=== PATIENT | female | born 1955 | race Caucasian/White ===

== ENCOUNTER → 2018-02-03 10:19 | Outpatient (CLI) | payer OTHER, SELFPAY ==
--- NOTE | 2018-02-03 | DI.US.S_ITS ---
PROCEDURE: US ABDOMEN LIMITED INDICATIONS: BULGE IN GROIN AREA TECHNIQUE: Real-time focused scanning was performed of the inguinal region, with image documentation. COMPARISON: None. FINDINGS: There is a hernia seen at the area of clinical concern. The hernia sac measures 2.1 x 0.8 x 0.7 cm. The opening within the abdominal wall measures 7 mm. IMPRESSION: Left groin hernia seen at the area of clinical concern. The contents of this hernia are unclear and may contain fat or bowel. Please consider a dedicated CT study with IV and oral contrast for further evaluation. Dictated by: Manny Melara M.D. on 02/03/2018 at 11:20 Approved by: Manny Melara M.D. on 02/03/2018 at 11:22
== END ==
PROVIDERS: PCP Internal Medicine; Visit Provider Internal Medicine
DX: K46.9 Unspecified abdominal hernia without obstruction or gangrene (principal); R19.09 Other intra-abdominal and pelvic swelling, mass and lump
CPT/HCPCS: 76705

== ENCOUNTER 2018-06-27 15:08 | Emergency (ER) | payer OTHER, SELFPAY ==
[2018-06-27 16:09] VITALS: BP 109/82; PULSE 72; RESP 14; O2SAT 100; BMI 25.8
--- NOTE | 2018-06-27 16:41 | ED_ITS ---
HPI - Skin/Abscess/Foreign Bdy <ANDREW Burns - Last Filed: 06/27/18 22:17> General Chief complaint: Skin/Abscess/Foreign Body Stated complaint: Red rash of abd Time Seen by Provider: 06/27/18 16:15 Source: patient Mode of arrival: ambulatory Limitations: no limitations History of Present Illness HPI narrative: 62-year-old female with history of eczema is a non smoker here for complaint of a rash to her bilateral lower abdomen into the bilateral hip area over the past couple of days. She states she has been using topical hydrocortisone and states that has not helped. She believes that this is an eczema outbreak starting. She requests to have a cortisone shot given to the area. She states that it rash is itchy. She denies any changes in her hygiene products. She denies any medication changes or diet changes. She states the cortisone shots this helped her in the past for this. She states this is typical rash for her when she has eczema outbreaks. Positive p.o. intake. No fevers or chills. No other concerns or complaints at this timeframe. Related Data Previous Rx's Medication Instructions Recorded prednisone 40 mg PO BID #8 tab 06/27/18 Allergies Allergy/AdvReac Type Severity Reaction Status Date / Time Penicillins AdvReac Hives Verified 06/27/18 16:09 Review of Systems <ANDREW Burns - Last Filed: 06/27/18 22:17> Constitutional Denies chills, Denies fever(s), Denies lethargy and Denies weakness Eyes Denies change in vision, Denies eye discharge, Denies irritation and Denies loss of vision ENT Ears, Nose, Mouth, and Throat: Denies change in voice, Denies neck pain and Denies sore throat Cardiovascular Denies chest pain, Denies irregular heart rhythm, Denies lightheadedness, Denies palpitations, Denies dyspnea, Denies dyspnea on exertion and Denies orthopnea Respiratory Denies cough, Denies dyspnea, Denies dyspnea on exertion and Denies wheezing Gastrointestinal Gastrointestinal: Denies abdominal pain, Denies change in bowel habits, Denies diarrhea, Denies nausea and Denies vomiting Genitourinary Denies hematuria, Denies flank pain, Denies urinary incontinence and Denies urinary urgency Musculoskeletal Denies neck pain Integumentary/Breasts Denies pruritus, Reports erythema, Reports rash and Denies wounds Neurologic Denies confusion, Denies loss of vision and Denies weakness Psychiatric Denies anxiety, Denies confusion, Denies depression, Denies homicidal ideation and Denies suicidal ideation Endocrine Denies palpitations Hematologic/Lymphatic Denies easy bruising Allergic/Immunologic Denies wheezing PFSH <NADREW Burns - Last Filed: 06/27/18 22:17> Medical History Hypothyroidism (Acute) Surgical History History of tonsillectomy (Acute) Family History Grandmother Breast cancer Social History Smoking Status: Never smoker Social History Smoking Status: Never smoker Exam <ANDREW Burns - Last Filed: 06/27/18 22:17> Initial Vital Signs Initial Vital Signs: Vital Signs Pulse Rate 72 06/27/18 16:09 Respiratory Rate 14 06/27/18 16:09 Blood Pressure 109/82 06/27/18 16:09 Pulse Oximetry 100 06/27/18 16:09 Const General: cooperative and well developed Nutritional Appearance: well nourished Orientation: alert, awake, oriented x3 and not confused HENMT Mouth: oral mucosae normal and moist mucous membranes Chest Chest: normal inspection of the chest Resp Effort & Inspection: normal respiratory effort, able to speak in complete sentences, no respiratory distress and no use of accessory muscles Auscultation: clear to auscultation bilaterally, no rales, no rhonchi and no wheezes Skin Other: Non raised erythematous macular papular to abdomen into bilateral hips area. No scaliness no dry skin. No open lesions Neuro General: alert, oriented x3, gait normal and no focal motor deficits Speech: speech normal <Ghassan Weinberg MD - Last Filed: 06/29/18 02:44> Initial Vital Signs Initial Vital Signs: Vital Signs Pulse Rate 72 06/27/18 16:09 Respiratory Rate 14 06/27/18 16:09 Blood Pressure 109/82 03/04/19 16:09 Pulse Oximetry 100 06/27/18 16:09 Course <ANDREW Burns - Last Filed: 06/27/18 22:17> Vital Signs - 8 hr 06/27/18 16:09 Pulse Rate 72 Respiratory Rate 14 Blood Pressure 109/82 Pulse Oximetry 100 <Ghassan Weinberg MD - Last Filed: 06/29/18 02:44> Vital Signs - 8 hr 06/27/18 16:09 Pulse Rate 72 Respiratory Rate 14 Blood Pressure 109/82 Pulse Oximetry 100 MDM - Skin/Abscess/Foreign Bdy <ANDREW Burns - Last Filed: 06/27/18 22:17> MDM Narrative Medical decision making narrative: Macular papular rash to abdomen and hips based on patient's history will treat as starting eczema. Had discussion with patient of her desired a cortisone shot and using oral steroids versus cortisone shot due to area of the rash being into whole of a bilateral abdomen and to the bilateral hip area and cortisone being localized versus systemic and she agreed to planned to use short course of prednisone to see if it helps with her symptoms. She is encouraged to follow up with Dermatology for further evaluation and treatment. For any worsening symptoms return to the emergency room. Discharge Plan Departure Patient Disposition: Home Clinical Impression: Eczema Qualifiers: Eczema type: unspecified Qualified Code(s): L30.9 - Dermatitis, unspecified Discharge Date/Time: 06/27/18 17:04 Interventions: ED Discharge Assessment Last Done: 06/27/18 17:04 Instructions: DI for Atopic Dermatitis - Adult Activity Restrictions/Additional Instructions: You are treated for starting eczema rash to the abdomen and hips with a oral steroid called prednisone use as directed. Prescription for short course of p rednisone is provided use as directed. Follow up with primary care provider and Dermatology. For any worsening symptoms return to the emergency room. May use [id number] cetirizine to help with itch for any worsening symptoms return emergency room. Prescriptions: New prednisone 20 mg tablet 40 mg PO BID Qty: 8 RF: 0 Referrals: Marga Martel MD [Primary Care Provider] -
== END 2018-06-27 17:04 | disposition home or self-care (01) ==
PROVIDERS: Emergency Provider Nurse Practitioner Family; PCP Internal Medicine
DX: L30.9 Dermatitis, unspecified (principal)
CPT/HCPCS: 99282; 99283

== ENCOUNTER 2020-08-30 09:54 | Emergency (ER) | payer OTHER, SELFPAY ==
[2020-08-30] VITALS (25 sets, daily range): BP systolic 111–151; BP diastolic 69–90; PULSE 91–140; RESP 5–21; TEMP 37.1; O2SAT 96–99
--- NOTE | 2020-08-30 10:09 | PC.NURSE ---
new diagnosis of A.Fib. with rapid heart rate starting today and light-headedness
--- NOTE | 2020-08-30 10:11 | DI.RAD.S_ITS ---
PROCEDURE: XR CHEST 1V INDICATIONS: chest pain TECHNIQUE: One view of the chest was acquired. COMPARISON: None. FINDINGS: Surgical changes and devices: None. Lungs and pleura: Lungs are clear. No pleural effusions or pneumothorax. However, the inferior-most left costophrenic angle is not included within the field of view of this study. Mediastinum: Mediastinal contours appear normal. Heart size is normal. Bones and chest wall: No suspicious bony lesions. Overlying soft tissues appear unremarkable. IMPRESSION: Limited portable chest examination, without a significant cardiopulmonary abnormality identified. Dictated by: Manny Melara M.D. on 08/30/2020 at 9:19 Approved by: Manny Melara M.D. on 08/30/2020 at 9:21
[2020-08-30 10:30] LABS: Add Manual Diff / Slide Review NO; Basophils Absolute Auto 0 /uL (0-100); Basophils Percent Auto 0.3 % (0-2); Eosinophils Absolute Auto 100 /uL (0-450); Eosinophils Percent Auto 1.3 % (2-4); Hematocrit 38.9 % (36-46); Hemoglobin 13.2 g/dL (12.0-16.0); Lymphocytes Absolute Auto 2100 /uL (1100-4500); Lymphocytes Percent Auto 33.2 % (25-40); Mean Corpuscular HGB Conc 34.1 % (30-36); Mean Corpuscular Hemoglobin 30.7 PG (26-34); Mean Corpuscular Volume 90.2 fL (80-100); Monocytes Absolute Auto 500 /uL (0-900); Neutrophils Absolute Auto 3500 /uL (1500-7000); Neutrophils Percent Auto 57.2 % (50-75); Platelet Count 221 X10^3/uL (150-400); Red Blood Cell Count 4.31 X10^6/uL (4.0-5.2); Red Cell Distribution Width 12.9 % (11.6-14.8); White Blood Cell Count 6.2 X10^3/uL (4.5-11.0)
[2020-08-30 10:37] LABS: Prothrombin Time 11.1 SECONDS (10.1-12.7)
[2020-08-30 10:40] LABS: PTT Partial Thromboplastin Tim 30 SECONDS (26.4-36.2)
[2020-08-30 10:41] LABS: Alanine Aminotransferase 25 IU/L (<35); Albumin 4.2 g/dL (3.5-5.0); Albumin Globulin Ratio 1.8 (1.0-2.8); Alkaline Phosphatase 87 U/L (38-126); Aspartate Aminotransferase 26 IU/L (14-36); BUN Creatinine Ratio 17.6 (6-22); Bilirubin Total 0.5 mg/dL (0.2-1.3); Blood Urea Nitrogen 12 mg/dL (7-17); Calcium 9.6 mg/dL (8.4-10.2); Carbon Dioxide 26 mmol/L (22-32); Chloride 106 mmol/L (98-107); Creatine Kinase 51 U/L (30-135); Estimated Glomerular Filt Rate > 60.0 mL/min (>60); Globulin 2.4 g/dL (1.7-4.1); Glucose 164 mg/dL (80-110); HEMOLYSIS < 15 (0-50); Sodium 139 mmol/L (137-145); Total Protein 6.6 g/dL (6.3-8.2)
[2020-08-30 10:53] LABS: Troponin I < 0.012 ng/mL (0.01-0.034)
--- NOTE | 2020-08-30 10:53 | ED.DIZZY ---
HPI - Dizziness General Chief Complaint: Dizziness Stated Complaint: a-fib episode today/lightheaded Time Seen by Provider: 08/30/20 10:04 Source: patient Mode of arrival: Ambulatory Limitations: no limitations History of Present Illness HPI Narrative: Patient is a 64-year-old female with history of hypothyroid who presents with lightheadedness which started suddenly this morning. She states she does monitor her heart rate on occasion by her watch but does not always wear her watch noticed that her heart rate was 150. She is was found to be atrial flutter heart rate 140s in the emergency department. She denies any chest pain palpitations shortness of breath nausea vomiting weakness numbness or tingling. Although she does have some tingling from her right elbow to her right wrist thinking it was carpal tunnel. But has no numbness or tingling in her fingertips. His no prior pre of atrial fibrillation. She denies any loss of consciousness or syncope. She states her lightheadedness is not any worse when she moves. She does not feel like the room is spinning. complaint: lightheadedness Related Data Home Medications Medication Instructions Recorded Confirmed Triiodothyronine 45 mcg PO BID 08/30/20 08/30/20 levothyroxine 100 mcg PO QAM 08/30/20 08/30/20 Previous Rx's Medication Instructions Recorded metoprolol succinate 25 mg PO DAILY #30 tab 08/30/20 Allergies Allergy/AdvReac Type Severity Reaction Status Date / Time Penicillins AdvReac Hives Verified 08/30/20 10:50 Review of Systems Review of Systems Narrative: GENERAL: Denies chills, fatigue, malaise, fever, sweats, travel HEENT: Denies sinus pain, ear pain, sore throat, difficulty swallowing, neck pain RESPIRATORY: Denies dyspnea, cough, wheezing, hemoptysis, sputum. CARDIOVASCULAR: Denies chest pain, palpitations, orthopnea, edema GASTROINTESTINAL: Denies nausea, vomiting, abdominal pain, diarrhea, constipation, melena. : Denies dysuria, frequency, incontinence, hematuria, urinary retention, flank pain. MUSCULOSKELETAL: Denies weakness, joint pain, or bony pain SKIN: No rash, no erythema, no pruritus NEUROLOGIC: Lightheaded PSYCHIATRIC: No concerning psychosocial issues. 12 point review of systems is negative except for those stated above and HPI Patient History Medical History (Updated 08/30/20 @ 13:09 by Michelle Garcia DO) Eczema Hypothyroidism Surgical History History of tonsillectomy Family History Grandmother Breast cancer Social History Smoking Status: Never smoker Smoking Status: Never smoker alcohol intake frequency: other Substance Use Type: does not use Exam Initial Vital Signs Initial Vital Signs: Vital Signs Temperature 98.8 F 08/30/20 10:05 Pulse Rate 140 H 08/30/20 10:05 Respiratory Rate 18 08/30/20 10:05 Blood Pressure 131/88 08/30/20 10:05 Pulse Oximetry 97 08/30/20 10:05 GENERAL: Well-appearing, well-nourished and in no acute distress. HEENT: Head atraumatic,EOMI, pupils reactive, face symmetric, moist mucous membranes CARDIOVASCULAR: Irregularly irregular without murmur RESPIRATORY: Breath sounds equal bilaterally, no wheezes rales or rhonchi. ABDOMEN: Soft, nontender. Normoactive bowel sounds all 4 quadrants. No guarding or rebound. EXTREMITIES: Normal range of motion, no clubbing or edema. Neurovascularly intact NEUROLOGICAL: Alert and oriented x4.Normal gait and speech. Cranial nerves II through XII grossly intact. SKIN: Warm, dry, no laceration, no petechiae, no rashes or lesions. Scores CHADS-VASc Congestive heart failure: no Hypertension: no Age 75 years or older: no Diabetes mellitus: no Stroke, TIA, or TE: no Vascular disease: no Age 65 to 74 years: no Sex category (female): Female CHADS-VASc Score: 1 Course Orders Ordered: ED Orders 08/30/20 10:11 XR chest 1V Stat 08/30/20 10:25 Complete Blood Count AUTO DIFF Stat Comprehensive Metabolic Panel Stat Free T4, Direct Thyroxine Stat Partial Thromboplastin Time Stat Prothrombin Time INR Stat TSH w/ Reflex to FT4 Stat Troponin & CK Cardiac Panel Stat 08/30/20 10:29 EKG-12 Lead Stat 08/30/20 10:54 CT head/brain wo con Stat Discontinued Medications Diltiazem HCl (Diltiazem 5 Mg/Ml Sdv) 10 mg IV NOW ONE Stop: 08/30/20 10:55 Last Admin: 08/30/20 11:29 Dose: 10 mg Documented by: RONIT Diltiazem HCl (Diltiazem 5 Mg/Ml Sdv) 10 mg IV NOW ONE Stop: 08/30/20 12:34 Last Admin: 08/30/20 13:11 Dose: Not Given Documented by: RONIT Metoprolol Succinate (Metoprolol Er 25 Mg Tablet) 25 mg PO NOW ONE Stop: 08/30/20 13:11 Last Admin: 08/30/20 13:23 Dose: 25 mg Documented by: TRACEY Vital Signs Vital signs: Vital Signs - 8 hr 08/30/20 10:05 08/30/20 10:55 08/30/20 11:00 Temperature 98.8 F Pulse Rate 140 H 114 H 114 H Respiratory Rate 18 11 L 12 Blood Pressure 131/88 133/83 Pulse Oximetry 97 97 97 08/30/20 11:13 08/30/20 11:28 08/30/20 11:29 Temperature Pulse Rate 114 H 109 H 120 H Respiratory Rate 15 15 Blood Pressure 135/83 132/85 132/85 Pulse Oximetry 97 98 08/30/20 11:30 08/30/20 11:40 08/30/20 11:50 Temperature Pulse Rate 116 H 91 H 97 H Respiratory Rate 20 16 19 Blood Pressure 129/90 111/82 Pulse Oximetry 99 98 97 08/30/20 12:00 08/30/20 12:01 08/30/20 12:10 Temperature Pulse Rate 100 H 106 H 100 H Respiratory Rate 18 16 21 Blood Pressure 151/69 H 122/78 Pulse Oximetry 97 96 96 08/30/20 12:20 08/30/20 12:31 08/30/20 12:32 Temperature Pulse Rate 102 H 112 H 110 H Respiratory Rate 18 14 5 L Blood Pressure 117/71 125/82 Pulse Oximetry 98 08/30/20 12:40 08/30/20 12:50 08/30/20 13:00 Temperature Pulse Rate 111 H 122 H 100 H Respiratory Rate 15 17 14 Blood Pressure 132/90 Pulse Oximetry 99 98 08/30/20 13:10 08/30/20 13:20 08/30/20 13:22 Temperature Pulse Rate 112 H 114 H 111 H Respiratory Rate 17 17 15 Blood Pressure 132/85 Pulse Oximetry 97 99 08/30/20 13:23 08/30/20 13:30 08/30/20 13:40 Temperature Pulse Rate 100 H 111 H 115 H Respiratory Rate 14 17 Blood Pressure 132/85 127/81 Pulse Oximetry 08/30/20 13:58 Temperature Pulse Rate 97 H Respiratory Rate Blood Pressure Pulse Oximetry MDM - Dizziness Lab Data Attestation: I reviewed the patient's lab results. Result diagrams: 08/30/20 10:25 08/30/20 10:25 Labs: Lab Results 08/30/20 08/30/20 08/30/20 Range/Units 10:25 10:25 10:25 WBC 6.2 (4.5-11.0) X10^3/uL RBC 4.31 (4.0-5.2) X10^6/uL Hgb 13.2 (12.0-16.0) g/dL Hct 38.9 (36-46) % MCV 90.2 (80-100) fL MCH 30.7 (26-34) PG MCHC 34.1 (30-36) % RDW 12.9 (11.6-14.8) % Plt Count 221 (150-400) X10^3/uL Neut % (Auto) 57.2 (50-75) % Lymph % (Auto) 33.2 (25-40) % [place] % (Auto) 8.0 (3-14) % Eos % (Auto) 1.3 L (2-4) % Baso % (Auto) 0.3 (0-2) % Neut # (Auto) 3500 (7506-2094) /uL Lymph # (Auto) 2100 (4442-6455) /uL [place] # (Auto) 500 (0-900) /uL Eos # (Auto) 100 (0-450) /uL Baso # (Auto) 0 (0-100) /uL PT 11.1 (10.1-12.7) SECONDS INR 1.0 (0.9-1.3) APTT 30 (26.4-36.2) SECONDS Sodium 139 (137-145) mmol/L Potassium 4.0 (3.4-5.1) mmol/L Chloride 106 (98-107) mmol/L Carbon Dioxide 26 (22-32) mmol/L BUN 12 (7-17) mg/dL Creatinine 0.68 (0.52-1.04) mg/dL Estimated GFR > 60.0 (>60) mL/min BUN/Creatinine Ratio 17.6 (6-22) Glucose 164 H (80-110) mg/dL Calcium 9.6 (8.4-10.2) mg/dL Total Bilirubin 0.5 (0.2-1.3) mg/dL AST 26 (14-36) IU/L ALT 25 (<35) IU/L Alkaline Phosphatase 87 (38-126) U/L Total Creatine Kinase 51 (30-135) U/L CK-MB (CK-2) TNP CK-MB (CK-2) Rel Index TNP Troponin I < 0.012 (0.01-0.034) ng/mL Total Protein 6.6 (6.3-8.2) g/dL Albumin 4.2 (3.5-5.0) g/dL Globulin 2.4 (1.7-4.1) g/dL Albumin/Globulin Ratio 1.8 (1.0-2.8) TSH (0.47-4.68) uIU/mL Free T4 (0.78-2.19) ng/dL 08/30/20 Range/Units 10:25 WBC (4.5-11.0) X10^3/uL RBC (4.0-5.2) X10^6/uL Hgb (12.0-16.0) g/dL Hct (36-46) % MCV (80-100) fL MCH (26-34) PG MCHC (30-36) % RDW (11.6-14.8) % Plt Count (150-400) X10^3/uL Neut % (Auto) (50-75) % Lymph % (Auto) (25-40) % [place] % (Auto) (3-14) % Eos % (Auto) (2-4) % Baso % (Auto) (0-2) % Neut # (Auto) (4335-2693) /uL Lymph # (Auto) (8207-3120) /uL [place] # (Auto) (0-900) /uL Eos # (Auto) (0-450) /uL Baso # (Auto) (0-100) /uL PT (10.1-12.7) SECONDS INR (0.9-1.3) APTT (26.4-36.2) SECONDS Sodium (137-145) mmol/L Potassium (3.4-5.1) mmol/L Chloride (98-107) mmol/L Carbon Dioxide (22-32) mmol/L BUN (7-17) mg/dL Creatinine (0.52-1.04) mg/dL Estimated GFR (>60) mL/min BUN/Creatinine Ratio (6-22) Glucose (80-110) mg/dL Calcium (8.4-10.2) mg/dL Total Bilirubin (0.2-1.3) mg/dL AST (14-36) IU/L ALT (<35) IU/L Alkaline Phosphatase (38-126) U/L Total Creatine Kinase (30-135) U/L CK-MB (CK-2) CK-MB (CK-2) Rel Index Troponin I (0.01-0.034) ng/mL Total Protein (6.3-8.2) g/dL Albumin (3.5-5.0) g/dL Globulin (1.7-4.1) g/dL Albumin/Globulin Ratio (1.0-2.8) TSH < 0.02 L (0.47-4.68) uIU/mL Free T4 1.18 (0.78-2.19) ng/dL Imaging Data Chest x-ray: Radiologist's Impression: PROCEDURE: XR CHEST 1V INDICATIONS: chest pain TECHNIQUE: One view of the chest was acquired. COMPARISON: None. FINDINGS: Surgical changes and devices: None. Lungs and pleura: Lungs are clear. No pleural effusions or pneumothorax. However, the inferior-most left costophrenic angle is not included within the field of view of this study. Mediastinum: Mediastinal contours appear normal. Heart size is normal. Bones and chest wall: No suspicious bony lesions. Overlying soft tissues appear unremarkable. IMPRESSION: Limited portable chest examination, without a significant cardiopulmonary abnormality identified. Dictated by: Manny Melara M.D. on 08/30/2020 at 9:19 Approved by: Manny Melara M.D. on 08/30/2020 at 9:21 CT scan - head: Radiologist's Impression: PROCEDURE: CT HEAD/BRAIN WO CON INDICATIONS: light headed TECHNIQUE: Noncontrast 4.5 mm thick angled axial sections acquired from the foramen magnum to the vertex, with coronal and sagittal reformats. For radiation dose reduction, the following was used: automated exposure control, adjustment of mA and/or kV according to patient size. COMPARISON: None. FINDINGS: Image quality: Excellent. CSF spaces: Basal cisterns are patent. No extra-axial fluid collections. Ventricles are normal in size and shape. Brain: No intracranial hemorrhage, mass, or mass effect. Beverly-white matter interface appears preserved. Skull and face: Calvarium and visualized facial bones are intact, without suspicious lesions. Sinuses: Visualized sinuses and mastoids are clear. IMPRESSION: 1. No acute intracranial abnormality. Dictated by: Guru Carey M.D. on 08/30/2020 at 11:24 ECG Data Attestation: I personally reviewed and interpreted this ECG as follows: Prior ECG tracings: not available for review Interpretation: Atrial flutter rate [address] changes EKG 2. Persistent atrial flutter rate [address] changes MDM Narrative Medical decision making narrative: Patient is not a candidate for cardioversion she is completely asymptomatic when her heart rate is is controlled. I do not feel like her timeline allows for cardioversion. She has a low chads Vasc 2 score however I still recommend at least aspirin 81 mg. TSH is also found to be undetectable. 1pm spoke with patient's PCP Dr. Martel at this time at this time agrees with outpatient follow-up and metoprolol for rate control Discharge Plan Departure Patient Disposition: Home Clinical Impression: Atrial fibrillation, Hypothyroid Instructions: Atrial Fibrillation Activity Restrictions/Additional Instructions: *You have been diagnosed with atrial fibrillation *What to do: At this time you will likely need more testing done with your primary care provider they do not need to stay in the hospital. *Continue to take medications as directed Metoprolol 25 mg once a day to help with rate control Aspirin 81 mg once daily to help prevent stroke and heart attack *Follow up with your primary care provider in 2-3 days *Return to ER if you should have lightheadedness, chest pain, shortness of breath, weakness or any new, worsening or concerning symptoms Prescriptions: New metoprolol succinate 25 mg tablet extended release 24 hr 25 mg PO DAILY Qty: 30 RF: 0 No Action levothyroxine 100 mcg Tablet 100 mcg PO QAM RF: 0 Triiodothyronine 45 mcg PO BID RF: 0 Referrals: Marga Martel MD [Primary Care Provider] -
[2020-08-30] MEDS: dilTIAZem 5 MG/ML SDV 10 MG IV (11:29)
[2020-08-30 12:18] LABS: TSH w/ Reflex to FT4 < 0.02 uIU/mL (0.47-4.68)
[2020-08-30 13:23] LABS: Free T4, Direct Thyroxine 1.18 ng/dL (0.78-2.19)
[2020-08-30] MEDS: METOPROLOL ER 25 MG TABLET PO (13:23)
== END 2020-08-30 13:59 | disposition home or self-care (01) ==
PROVIDERS: Emergency Provider Emergency Medicine; PCP Internal Medicine
DX: I48.91 Unspecified atrial fibrillation (principal); E03.9 Hypothyroidism, unspecified; R07.9 Chest pain, unspecified
CPT/HCPCS: 36415; 70450; 71045; 80053; 82550; 84439; 84443; 84484; 85025; 85610; 85730; 93005; 96374; 99284; 99285

== ENCOUNTER → 2021-01-13 16:29 | Outpatient (CLI) | payer OTHER, SELFPAY ==
--- NOTE | 2021-01-13 | DI.MG.S_ITS ---
BILATERAL DIGITAL SCREENING MAMMOGRAM 3D/2D WITH CAD: 01/13/2021 CLINICAL: Routine screening. Baseline by default. Family history of breast cancer. No prior exams were available for comparison. The tissue of both breasts is heterogeneously dense. This may lower the sensitivity of mammography. Current study was also evaluated with a Computer Aided Detection (CAD) system. There is a focal asymmetry in the right breast central to the nipple in the retroareolar region. No other significant masses, calcifications, or other findings are seen in either breast. IMPRESSION: INCOMPLETE: NEEDS ADDITIONAL IMAGING EVALUATION The focal asymmetry in the right breast is indeterminate. Additional views with possible ultrasound are recommended. This exam was interpreted at Station ID: [id number]. NOTE: For mammograms, a report in lay terms will be sent to the patient. Approximately 15% of breast malignancies will not be visualized mammographically. In the management of a palpable breast mass, a negative mammogram must not discourage biopsy of a clinically suspicious lesion. Electronically Signed By: Jd ruby/edie:01/14/2021 08:31:15 letter sent: Additional Imaging Needed ACR BI-RADS Category 0: Incomplete [id number]
== END ==
PROVIDERS: PCP Internal Medicine; Referring Provider Internal Medicine; Visit Provider Internal Medicine
DX: Z12.31 Encounter for screening mammogram for malignant neoplasm of breast (principal); N64.89 Other specified disorders of breast; Z80.3 Family history of malignant neoplasm of breast
CPT/HCPCS: 77063; 77067

== ENCOUNTER → 2022-04-15 13:21 | Outpatient (CLI) | payer OTHER, SELFPAY | PROVIDERS: PCP Internal Medicine; Referring Provider Hospitalist; Visit Provider Hospitalist | DX: I48.0 Paroxysmal atrial fibrillation (principal) | CPT/HCPCS: 93005 ==

== ENCOUNTER 2025-01-14 20:55 | Emergency (ER) | payer OTHER, SELFPAY ==
[2025-01-14 21:07] VITALS: BP 182/95; PULSE 71; RESP 18; TEMP 36.8; O2SAT 98
--- NOTE | 2025-01-14 21:10 | DI.RAD.S_ITS ---
PROCEDURE: XR KNEE RT 3V INDICATIONS: swelling TECHNIQUE: 3 views of the knee were acquired. COMPARISON: None. FINDINGS: Bones: No fractures or dislocations. No suspicious bony lesions. Mild tricompartmental osteoarthrosis. Chondrocalcinosis. Suprapatellar enthesophytes. Soft tissues: Possible joint effusion, however evaluation is limited due to patient factors related to positioning. No suspicious soft tissue calcifications. IMPRESSION: No acute bony abnormality or significant effusion. Chondrocalcinosis. Suprapatellar enthesophytes and mild tricompartmental osteoarthrosis. If symptoms persist with conservative management, consider cross-sectional imaging such as CT or MRI. Approved by: Carissa Durham M.D.,Ph.D. on 01/14/2025 at 23:56
--- NOTE | 2025-01-14 23:40 | ED.EXTPRO ---
HPI - Extremity Problem General Chief complaint: Extremity Problem,Nontraumatic Stated complaint: R Knee Pain Time Seen by Provider: 01/14/25 23:31 Source: patient Mode of arrival: Wheelchair History of Present Illness HPI Narrative: 69-year-old female had injection of superficial veins recently, on the dance floor earlier today was twisting and felt pop pain sensation to the right knee. No gross swelling. No instability or fall. No direct blow. No prior surgical interventions on that affected knee. No distal foreleg swelling. No hip pain. Related Data Home Medications ?Medication ?Instructions ?Recorded ?Confirmed Triiodothyronine 45 mcg PO BID 08/30/20 09/29/24 levothyroxine 100 mcg tablet 100 mcg PO QAM 08/30/20 09/29/24 Previous Rx's ?Medication ?Instructions ?Recorded metoprolol succinate 25 mg 25 mg PO DAILY #30 tabs 08/30/20 tablet,extended release 24 hr prednisone 20 mg tablet 40 mg (2 x 20 mg) PO DAILY #6 tabs 12/24/22 triamcinolone acetonide 0.5 % 1 applic topical TID #15 grams 12/24/22 topical ointment Allergies Allergy/AdvReac Type Severity Reaction Status Date / Time Penicillins AdvReac Hives Verified 09/29/24 11:27 Patient History Medical History (Updated 01/15/25 @ 00:09 by Dwight Cosby MD) Eczema Hypothyroidism Surgical History History of tonsillectomy Family History Grandmother Breast cancer alcohol intake frequency: other Exam Narrative Exam Narrative: GENERAL: Well-developed patient, in mild distress. HEAD: Atraumatic. Normocephalic. EYES: Pupils equal round and reactive. Extraocular motions intact. No scleral icterus. No injection or drainage. ENT: Nose without bleeding, purulent drainage. Throat without erythema, tonsillar hypertrophy or exudate. Airway patent. NECK: Trachea midline. Non tender CARDIOVASCULAR: Regular rate and rhythm without murmurs, gallops, or rubs. RESPIRATORY: Clear to auscultation. Breath sounds equal bilaterally. No wheezes, rales, or rhonchi. GASTROINTESTINAL: Abdomen soft, non-tender, nondistended. EXTREMITIES: No obvious gross edema effusion to the right knee. No skin changes abrasions lacerations or punctures. No tenderness medial or lateral joint line. No tenderness around the patella or along the patellar tendon or its insertion. Lisandro's with good end point. No discomfort or laxity with valgus stress or varus stress. No posterior popliteal lesions or tenderness or cords or Nichols cyst obvious. BACK: Nontender without deformity or crepitance. No flank tenderness. NEURO: AOx3. Motor functions grossly nonfocal. SKIN: No rash or erythema of visible areas Initial Vital Signs Initial Vital Signs: Vital Signs Temperature 98.3 F 01/14/25 21:07 Pulse Rate 71 01/14/25 21:07 Respiratory Rate 18 01/14/25 21:07 Blood Pressure 182/95 H 01/14/25 21:07 Pulse Oximetry 98 01/14/25 21:07 Oxygen Delivery Method Room Air 01/14/25 21:07 Course Orders Ordered: ED Orders 01/15/25 00:13 Consult to [facility] Stat Discontinued Medications Tramadol HCl (Tramadol 50 Mg Tablet) 50 mg PO NOW ONE Stop: 01/14/25 23:49 Last Admin: 01/14/25 23:57 Dose: 50 mg Documented By: BERE Tramadol HCl (Tramadol 50 Mg Prepack) 1 bottle MISC DIRECTED ONE Stop: 01/14/25 23:49 Last Admin: 01/14/25 23:57 Dose: 1 bottle Documented By: BERE Vital Signs Vital signs: Vital Signs - 8 hr 01/15/25 00:35 Pulse Rate 80 Respiratory Rate 18 Blood Pressure 168/88 H Pulse Oximetry 100 Oxygen Delivery Method Room Air MDM - Extremity (Nontraumatic) Imaging Data Extremity x-ray #1: Radiologist's Impression: [address] [address] XRay Report Signed Patient: Petra Haile MR#: [id number] : 1955 Acct:[id number] Age/Sex: 69 / F Date of Service: 01/14/25 Loc: ED Accession Number: [id number] Procedure: XR knee RT 3V Ordering Provider: Dwight Cosby MD PROCEDURE: XR KNEE RT 3V INDICATIONS: swelling TECHNIQUE: 3 views of the knee were acquired. COMPARISON: None. FINDINGS: Bones: No fractures or dislocations. No suspicious bony lesions. Mild tricompartmental osteoarthrosis. Chondrocalcinosis. Suprapatellar enthesophytes. Soft tissues: Possible joint effusion, however evaluation is limited due to patient factors related to positioning. No suspicious soft tissue calcifications. IMPRESSION: No acute bony abnormality or significant effusion. Chondrocalcinosis. Suprapatellar enthesophytes and mild tricompartmental osteoarthrosis. If symptoms persist with conservative management, consider cross-sectional imaging such as CT or MRI. Approved by: Carissa Durham M.D.,Ph.D. on 01/14/2025 at 23:56 MDM Narrative Medical decision making narrative: 69-year-old female with right knee popping sensation after dancing, persisting pain seems predominantly anteromedial. No joint line tenderness medial or lateral along the knee, no gross effusion. Good endpoint Lisandro's, no laxity varus or valgus stress. Concern for possible intra-articular injury. Screening x-ray negative for obvious fracture. Placed in knee immobilizer, nonweightbearing for now with crutches that were dispensed. Rest, ice, elevation. Recheck advised with PCP or with local orthopedic surgery in the next couple of days to reassess knee exam and see if weight-bearing can be attempted, might need eventual MRI knee if intra-articular injury concern persists. Discharged home with family. Return precautions discussed. Discharge Plan Departure Patient Disposition: Home Clinical Impression: Strain of right knee Activity Restrictions/Additional Instructions: Right knee discomfort with twisting dancing maneuver, pop pain sensation. No gross large knee effusion on examination. Examination not consistent with DVT, no ultrasound ordered for tonight. X-rays did not show any obvious fracture but did show arthritic change per radiologist's report. Concern by clinical history of ligamentous injury, though no gross instability by knee exam presently. We discussed protecting the knee with knee immobilizer and nonweightbearing with use of crutches for initial management. Rest ice elevation. Use of ibuprofen anti-inflammatory medication [id number] should suffice. Consider recheck with your regular doctor and/or orthopedic surgery in follow up, if symptoms are persisting then concern increase his for ligamentous intra-articular injury, sometimes prompting MRI knee imaging, or other evaluation in follow up. Prescriptions: No Action prednisone 20 mg tablet 40 mg PO DAILY Qty: 6 0RF triamcinolone acetonide 0.5 % ointment 1 applic topical TID Qty: 15 0RF levothyroxine 100 mcg Tablet 100 mcg PO QAM Triiodothyronine 45 mcg PO BID Rx Instructions: extended release, compound pharmacy metoprolol succinate 25 mg tablet extended release 24 hr 25 mg PO DAILY Qty: 30 0RF Referrals: Marga Martel MD [Primary Care Provider, Medical] Kurtis Disla MD [Physician, Orthopedic Surgery] Stand Alone Forms: Patient Portal/API
[2025-01-15 00:35] VITALS: BP 168/88; PULSE 80; RESP 18; O2SAT 100
== END 2025-01-15 00:36 | disposition home or self-care (01) ==
PROVIDERS: Emergency Provider Emergency Medicine; PCP Internal Medicine
DX: S83.91XA Sprain of unspecified site of right knee, initial encounter (principal); X50.1XXA Overexertion from prolonged static or awkward postures, initial encounter
CPT/HCPCS: 73562; 99283

== ENCOUNTER 2025-02-22 11:55 | Emergency (ER) | payer OTHER, SELFPAY ==
[2025-02-22 12:00] VITALS: BP 119/83; PULSE 56; RESP 13; TEMP 36.1; O2SAT 99; BMI 23.6
--- NOTE | 2025-02-22 12:03 | EKG_ITS ---
[address] [address] Test Date: 2025-02-22 Pat Name: Petra Haile Department: Room: Gender: Female [employer]: ANDRADE : 1955 Requested By: Order Number: [id number] Reading MD: Malik Leonard MD Measurements Intervals [place] Rate: 51 P: -10 [place]: 166 QRS: -2 QRSD: 80 T: 17 QT: 426 QTc: 392 Interpretive Statements Sinus bradycardia Low voltage QRS Cannot rule out Anterior infarct , age undetermined Electronically Signed On 03-04-2025 9:00:26 PST by Malik Leonard MD
--- NOTE | 2025-02-22 12:06 | DI.RAD.S_ITS ---
PROCEDURE: XR CHEST 1V INDICATIONS: Chest Pain TECHNIQUE: One view of the chest was acquired. COMPARISON: None. FINDINGS: Surgical changes and devices: None. Lungs and pleura: Lungs are clear. No pleural effusions or pneumothorax. Mediastinum: Mediastinal contours appear normal. Heart size is normal. Bones and chest wall: No suspicious bony lesions. Overlying soft tissues appear unremarkable. IMPRESSION: No acute cardiopulmonary abnormality is seen. Dictated by: Hector Quevedo M.D. on 02/22/2025 at 12:31 Approved by: Hector Quevedo M.D. on 02/22/2025 at 12:32
[2025-02-22] MEDS: ASPIRIN 81 MG CHEW TAB 324 MG PO (12:14)
[2025-02-22 12:25] LABS: Add Manual Diff / Slide Review NO; Hematocrit 37.3 % (36-46); Hemoglobin 12.9 g/dL (12.0-16.0); Lymphocytes Absolute Auto 2400 /uL (1100-4500); Mean Corpuscular HGB Conc 34.6 % (30-36); Mean Corpuscular Hemoglobin 32.2 PG (26-34); Mean Corpuscular Volume 93.0 fL (80-100); Platelet Count 202 X10^3/uL (150-400)
[2025-02-22 12:35] LABS: INR 1.0 (0.9-1.3); Prothrombin Time 11.2 SECONDS (9.4-12.5)
[2025-02-22 12:38] LABS: PTT Partial Thromboplastin Tim 27 SECONDS (25.1-36.5)
[2025-02-22 12:39] LABS: Alanine Aminotransferase 21 IU/L (<35); Albumin 4.5 g/dL (3.5-5.0); Albumin Globulin Ratio 1.7 (1.0-2.8); Alkaline Phosphatase 60 U/L (38-126); Blood Urea Nitrogen 21 mg/dL (7-17); Calcium 9.0 mg/dL (8.4-10.2); Carbon Dioxide 25 mmol/L (22-32); Chloride 101 mmol/L (98-107); Creatine Kinase 68 U/L (30-135); Estimated Glomerular Filt Rate > 60 mL/min (>60); Globulin 2.7 g/dL (1.7-4.1); Glucose 102 mg/dL (70-99); HEMOLYSIS < 15 (0-50); Lipase 93 U/L (23-300); Magnesium 2.2 mg/dL (1.6-2.3); Potassium 4.3 mmol/L (3.4-5.1); Sodium 134 mmol/L (137-145); Total Protein 7.2 g/dL (6.3-8.2)
[2025-02-22 12:51] LABS: NT-proBNP (BNP-Adult 18+) 115 pg/mL (<125); Troponin I < 0.012 ng/mL (0.01-0.034)
[2025-02-22 13:05] VITALS: PULSE 54; RESP 18; O2SAT 97
[2025-02-22 13:30] VITALS: PULSE 55; RESP 16; O2SAT 100
--- NOTE | 2025-02-22 13:38 | ED.CHESTPAIN ---
HPI - Chest Pain General Chief Complaint: Chest Pain Stated Complaint: per patient had a heart attack now Time Seen by Provider: 02/22/25 13:08 Source: patient Mode of arrival: Ambulatory Limitations: no limitations History of Present Illness HPI narrative: Patient here with . Had sudden onset substernal sharp chest pain did not radiate at 12:00 p.m. today. Had nausea and shortness of breath. Symptoms lasted about 5 minutes. Patient has no symptoms now. Patient has history of atrial fibrillation. Patient has never had a stress test or echocardiogram. No primary family history of cardiac disease coronary disease or heart attacks. Patient has no complaints at this time. No recent fatigue or exertional chest pain or shortness of breath. No history of aortic aneurysm dissection or pulmonary embolism Related Data Home Medications ?Medication ?Instructions ?Recorded ?Confirmed Triiodothyronine 45 mcg PO BID 08/30/20 02/28/25 levothyroxine 100 mcg tablet 100 mcg PO QAM 08/30/20 02/28/25 Previous Rx's ?Medication ?Instructions ?Recorded metoprolol succinate 25 mg 25 mg PO DAILY #30 tabs 08/30/20 tablet,extended release 24 hr triamcinolone acetonide 0.5 % 1 applic topical TID #15 grams 12/24/22 topical ointment Allergies Allergy/AdvReac Type Severity Reaction Status Date / Time Penicillins AdvReac Hives Verified 02/28/25 12:48 Review of Systems Review of Systems Narrative: GENERAL: Negative chills, fatigue, malaise, fever, sweats. HEENT: Negative sinus pain, ear pain, sore throat RESPIRATORY: Positive dyspnea, negative cough CARDIOVASCULAR: Positive chest pain, negative palpitations GASTROINTESTINAL: Negative vomiting, positive nausea, negative abdominal pain : Negative dysuria, frequency, hematuria MUSCULOSKELETAL: Negative muscle or bony pain SKIN: Negative rash, skin lesions NEUROLOGIC: Negative weakness, numbness ROS Unobtainable: All systems reviewed & are unremarkable except as noted in HPI and below Patient History Medical History (Updated 02/28/25 @ 13:16 by Leti Erickson PA-C) Eczema Hypothyroidism Surgical History History of tonsillectomy Family History Grandmother Breast cancer Social History Smoking Status: Smoker, status unknown Smoking Status: Unknown if ever smoked alcohol intake frequency: other Exam Narrative Exam Narrative: GENERAL: in no distress, not toxic not dyspneic HEAD: Normocephalic. EYES: Pupils equal round ENT: Mucous membranes moist. NECK: Trachea midline. CARDIOVASCULAR: Regular rate and rhythm strong bilateral carotid and radial pulses. Hands warm soft and pink. RESPIRATORY: Clear to auscultation. Breath sounds equal bilaterally. No wheezes, rales, or rhonchi. GASTROINTESTINAL: Abdomen soft, non-tender BACK: No flank tenderness. EXTREMITIES: No gross deformities. NEURO: AOx4. Clear speech SKIN: Warm and dry PSYCH: Not anxious, is cooperative Initial Vital Signs Initial Vital Signs: Vital Signs Temperature 96.9 F L 02/22/25 12:00 Pulse Rate 56 L 02/22/25 12:00 Respiratory Rate 13 02/22/25 12:00 Blood Pressure 119/83 02/22/25 12:00 Pulse Oximetry 99 02/22/25 12:00 Oxygen Delivery Method Room Air 02/22/25 12:00 Course Orders Ordered: Discontinued Medications Aspirin (Aspirin 81 Mg Chew Tab) 324 mg PO NOW ONE Stop: 02/22/25 12:07 Last Admin: 02/22/25 12:14 Dose: 324 mg Documented By: KISHA Sodium Chloride (Normal Saline 0.9%) 1,000 mls @ 1,000 mls/hr IV BOLUS ONE Stop: 02/22/25 14:45 Last Infusion: 02/22/25 15:26 Dose: Infused Documented By: Admin: 02/22/25 14:08 Dose: 1,000 mls/hr Documented By: DIPIKA Vital Signs Vital signs: Vital Signs - 8 hr 02/22/25 12:00 02/22/25 13:05 02/22/25 13:30 Temperature 96.9 F L Pulse Rate 56 L 54 L 55 L Respiratory Rate 13 18 16 Blood Pressure 119/83 Pulse Oximetry 99 97 100 Oxygen Delivery Method Room Air 02/22/25 14:03 02/22/25 14:09 02/22/25 14:09 Temperature Pulse Rate 55 L 55 L Respiratory Rate 15 Blood Pressure 125/66 Pulse Oximetry 96 99 Oxygen Delivery Method MDM - Chest Pain Lab Data 02/22/25 12:13 02/22/25 12:13 Labs: Lab Results 02/22/25 02/22/25 Range/Units 12:13 14:17 WBC 6.1 (4.5-11.0) X10^3/uL RBC 4.01 (4.0-5.2) X10^6/uL Hgb 12.9 (12.0-16.0) g/dL Hct 37.3 (36-46) % MCV 93.0 (80-100) fL MCH 32.2 (26-34) PG MCHC 34.6 (30-36) % RDW 12.7 (11.6-14.8) % Plt Count 202 (150-400) X10^3/uL Neut % (Auto) 49.5 L (50-75) % Lymph % (Auto) 39.2 (25-40) % [place] % (Auto) 8.7 (3-14) % Eos % (Auto) 2.0 (2-4) % Baso % (Auto) 0.6 (0-2) % Neut # (Auto) 3000 (9804-4817) /uL Lymph # (Auto) 2400 (0313-1394) /uL [place] # (Auto) 500 (0-900) /uL Eos # (Auto) 100 (0-450) /uL Baso # (Auto) 0 (0-100) /uL PT 11.2 (9.4-12.5) SECONDS INR 1.0 (0.9-1.3) APTT 27 (25.1-36.5) SECONDS Sodium 134 L (137-145) mmol/L Potassium 4.3 (3.4-5.1) mmol/L Chloride 101 (98-107) mmol/L Carbon Dioxide 25 (22-32) mmol/L BUN 21 H (7-17) mg/dL Creatinine 0.81 (0.52-1.04) mg/dL Estimated GFR > 60 (>60) mL/min BUN/Creatinine Ratio 25.9 H (6-22) Glucose 102 H (70-99) mg/dL Calcium 9.0 (8.4-10.2) mg/dL Magnesium 2.2 (1.6-2.3) mg/dL Total Bilirubin 0.7 (0.2-1.3) mg/dL AST 26 (14-36) IU/L ALT 21 (<35) IU/L Alkaline Phosphatase 60 (38-126) U/L Total Creatine Kinase 68 (30-135) U/L Troponin I < 0.012 < 0.012 (0.01-0.034) ng/mL NT-Pro-B Natriuret Pep 115 (<125) pg/mL Total Protein 7.2 (6.3-8.2) g/dL Albumin 4.5 (3.5-5.0) g/dL Globulin 2.7 (1.7-4.1) g/dL Albumin/Globulin Ratio 1.7 (1.0-2.8) Lipase 93 (23-300) U/L Imaging Data Chest x-ray: Radiologist's Impression: [address] [address] XRay Report Signed Patient: Petra Haile MR#: [id number] : 1955 Acct:[id number] Age/Sex: 69 / F Date of Service: 02/22/25 Loc: ED Accession Number: [id number] Procedure: XR chest 1V Ordering Provider: Marco Antonio Boswell MD PROCEDURE: XR CHEST 1V INDICATIONS: Chest Pain TECHNIQUE: One view of the chest was acquired. COMPARISON: None. FINDINGS: Surgical changes and devices: None. Lungs and pleura: Lungs are clear. No pleural effusions or pneumothorax. Mediastinum: Mediastinal contours appear normal. Heart size is normal. Bones and chest wall: No suspicious bony lesions. Overlying soft tissues appear unremarkable. IMPRESSION: No acute cardiopulmonary abnormality is seen. Dictated by: Hector Quevedo M.D. on 02/22/2025 at 12:31 Approved by: Hector Quevedo M.D. on 02/22/2025 at 12:32 CT angio chest abdomen and pelvis: Radiologist's Impression: [address] [address] [address] Scan Report Signed Patient: Petra Haile MR#: [id number] : 1955 Acct:[id number] Age/Sex: 69 / F Date of Service: 02/22/25 Loc: ED Accession Number: [id number] Procedure: CT angio chest abdomen pelvis Ordering Provider: Marco Antonio Boswell MD PROCEDURE: CT ANGIO CHEST ABDOMEN PELVIS INDICATIONS: Chest pain TECHNIQUE: Precontrast 5 mm thick sections acquired from the lung apices to the iliac crests. After the administration of intravenous contrast, 2.5 mm thick sections again acquired from the lung apices to the iliac crests. Maximum intensity projection (MIP) oblique sagittal and coronal reformats were then acquired. For radiation dose reduction, the following was used: automated exposure control. COMPARISON: None. FINDINGS: Image quality: Diagnostic. AORTA: No aortic aneurysm. No acute aortic syndrome. CHEST: Lower Neck: No enlarged lymph nodes. Thyroid: No thyroid nodules which require sonographic evaluation. Axillae: No enlarged lymph nodes. Chest Wall: Unremarkable. Lungs and Pleura: No pneumothorax or pleural effusions. No consolidation or suspicious nodules. Heart: Heart size is normal. No pericardial effusion. Thoracic Vessels: Pulmonary arteries demonstrate normal size. Mediastinum and Georg[place]: No enlarged lymph nodes. Esophagus: No wall thickening. No hiatal hernia. ABDOMEN: Liver: No solid mass. Gallbladder: No radiopaque gallstones or wall thickening. Biliary ducts: No biliary dilation. Pancreas: No ductal dilation. Spleen: Size is within normal limits. Adrenal Glands: No adrenal nodules. Kidneys and Ureters: No hydronephrosis. No solid mass. No complex renal cystic lesion which requires follow up. 7.7 centimeter right renal cyst with thin internal septation; Bosniak 2 requiring no further follow-up. Stomach and Bowel: Normal colonic caliber, without significant wall thickening. Colonic diverticulosis without evidence of diverticulitis. Peritoneum: No abnormal intraperitoneal fluid. No free air. Ventral Wall: No hernia. Abdominal Nodes: No retroperitoneal or mesenteric adenopathy by size criteria. Vessels: Inferior vena cava is normal in size. PELVIS: Pelvic Organs: Endometrium measures approximately 18 millimeter. Bladder: Unremarkable. Pelvic Nodes: No enlarged lymph nodes. Miscellaneous: No inguinal hernias are seen. Bones: Unremarkable. IMPRESSION: No acute aortic syndrome. No significant pulmonary embolus or coronary calcifications. No findings to explain the patient's chest pain. Endometrium appears to measure 18 millimeters, abnormal in this age group. Recommend outpatient pelvic ultrasound for confirmation. Dictated by: Bryant Cuadra M.D. on 02/22/2025 at 14:10 Approved by: Bryant Cuadra M.D. on 02/22/2025 at 14:13 [facility] Narrative Medical decision making narrative: Patient here with . Had sudden onset substernal sharp chest pain did not radiate at 12:00 p.m. today. Had nausea and shortness of breath. Symptoms lasted about 5 minutes. Patient has no symptoms now. Patient has history of atrial fibrillation. Patient has never had a stress test or echocardiogram. No primary family history of cardiac disease coronary disease or heart attacks. Patient has no complaints at this time. No recent fatigue or exertional chest pain or shortness of breath. No history of aortic aneurysm dissection or pulmonary embolism MDM After history and exam, EKG troponin CBC CMP normal saline chest x-ray aspirin CT chest Differential considered: Includes but not limited to STEMI non-STEMI angina pulmonary embolism aortic dissection acute coronary syndrome Medical records reviewed: No recent visit for this complaint Lab Test results independently reviewed as above. Pertinent findings: Troponin less than 0.012 x2 WBC 6.1 hemoglobin 12.9 sodium 134 potassium 4.3 BUN 21 creatinine 0.81 BNP 115 Independently reviewed EKG sinus bradycardia rate 51 Imaging studies independently reviewed: Chest x-ray no acute finding, CT chest and and pelvis angiogram no acute finding, no pulmonary embolism Consultations: 4:30 p.m. I spoke with [facility] physician and they have approved for patient's transfer for admission and stress test. We do not have stress test capability this week. Re-evaluations: 5:05 p.m.. I spoke with patient need for transfer for chest pain/cardiac stress test which we do not have available here the rest of this week. She has decided she does not want to be transferred. Currently chest pain-free she is awake alert oriented x4. She states she has called her primary care for outpatient arrangement testing. I implored with her and reviewed with her multiple times indication for need to transfer for stress test. She has declined. Risk of leaving against medical advice includes but not limited to heart attack permanent injury loss of limb or organ tissue, worsening symptoms. Discussion: Patient has decided to leave against medical advice. Diagnosis: Chest pain Discharge Plan Departure Patient Disposition: Left Against Medical Advice Clinical Impression: Chest pain Qualifiers: Chest pain type: unspecified Qualified Code(s): R07.9 - Chest pain, unspecified Instructions: Refusal of Consent to Treatment (Against Medical Advice) Activity Restrictions/Additional Instructions: Return immediately if you change your mind for further evaluation and treatment Prescriptions: No Action triamcinolone acetonide 0.5 % ointment 1 applic topical TID Qty: 15 0RF levothyroxine 100 mcg Tablet 100 mcg PO QAM Triiodothyronine 45 mcg PO BID Rx Instructions: extended release, compound pharmacy metoprolol succinate 25 mg tablet extended release 24 hr 25 mg PO DAILY Qty: 30 0RF Referrals: Marga Martel MD [Primary Care Provider, Medical] Stand Alone Forms: Patient Portal/API, Against Med. Advice ([place])
--- NOTE | 2025-02-22 13:46 | DI.CT.S_ITS ---
PROCEDURE: CT ANGIO CHEST ABDOMEN PELVIS INDICATIONS: Chest pain TECHNIQUE: Precontrast 5 mm thick sections acquired from the lung apices to the iliac crests. After the administration of intravenous contrast, 2.5 mm thick sections again acquired from the lung apices to the iliac crests. Maximum intensity projection (MIP) oblique sagittal and coronal reformats were then acquired. For radiation dose reduction, the following was used: automated exposure control. COMPARISON: None. FINDINGS: Image quality: Diagnostic. AORTA: No aortic aneurysm. No acute aortic syndrome. CHEST: Lower Neck: No enlarged lymph nodes. Thyroid: No thyroid nodules which require sonographic evaluation. Axillae: No enlarged lymph nodes. Chest Wall: Unremarkable. Lungs and Pleura: No pneumothorax or pleural effusions. No consolidation or suspicious nodules. Heart: Heart size is normal. No pericardial effusion. Thoracic Vessels: Pulmonary arteries demonstrate normal size. Mediastinum and Georg[place]: No enlarged lymph nodes. Esophagus: No wall thickening. No hiatal hernia. ABDOMEN: Liver: No solid mass. Gallbladder: No radiopaque gallstones or wall thickening. Biliary ducts: No biliary dilation. Pancreas: No ductal dilation. Spleen: Size is within normal limits. Adrenal Glands: No adrenal nodules. Kidneys and Ureters: No hydronephrosis. No solid mass. No complex renal cystic lesion which requires follow up. 7.7 centimeter right renal cyst with thin internal septation; Bosniak 2 requiring no further follow-up. Stomach and Bowel: Normal colonic caliber, without significant wall thickening. Colonic diverticulosis without evidence of diverticulitis. Peritoneum: No abnormal intraperitoneal fluid. No free air. Ventral Wall: No hernia. Abdominal Nodes: No retroperitoneal or mesenteric adenopathy by size criteria. Vessels: Inferior vena cava is normal in size. PELVIS: Pelvic Organs: Endometrium measures approximately 18 millimeter. Bladder: Unremarkable. Pelvic Nodes: No enlarged lymph nodes. Miscellaneous: No inguinal hernias are seen. Bones: Unremarkable. IMPRESSION: No acute aortic syndrome. No significant pulmonary embolus or coronary calcifications. No findings to explain the patient's chest pain. Endometrium appears to measure 18 millimeters, abnormal in this age group. Recommend outpatient pelvic ultrasound for confirmation. Dictated by: Bryant Cuadra M.D. on 02/22/2025 at 14:10 Approved by: Bryant Cuadra M.D. on 02/22/2025 at 14:13
[2025-02-22 14:03] VITALS: PULSE 55; O2SAT 96
[2025-02-22] MEDS: SODIUM CHLORIDE 0.9% 1,000 ML 1000 ML IV (14:08)
[2025-02-22 14:09] VITALS: BP 125/66; PULSE 55; RESP 15; O2SAT 99
[2025-02-22 15:01] LABS: Troponin I < 0.012 ng/mL (0.01-0.034)
--- NOTE | 2025-02-22 17:17 | PC.NURSE ---
pt want to leave ama. frances aware. assessed by the and cleared for DC
== END 2025-02-22 17:24 | disposition left against medical advice (07) ==
PROVIDERS: Emergency Provider Emergency Medicine; PCP Internal Medicine
DX: R07.9 Chest pain, unspecified (principal); R06.02 Shortness of breath; R11.0 Nausea; Z86.79 Personal history of other diseases of the circulatory system
CPT/HCPCS: 36415; 71045; 71275; 74174; 80053; 82550; 83690; 83735; 83880; 84484; 85025; 85610; 85730; 93005; 93010; 96360; 99284; J7030